=== PATIENT | male | born 1935 | race Caucasian/White ===

== ENCOUNTER 2017-12-23 11:51 | Observation (INO) | payer MEDICARE, OTHER ==
[~2017-12-23] VITALS: Ht 182.9 cm; Wt 93.4 kg
[2017-12-23] MEDS ORDERED: Zocor20 MG PO (12:21)
[2017-12-23] MEDS ORDERED: METO25ER (12:21)
[2017-12-23] MEDS ORDERED: XARELTO20 MG PO (12:21)
[2017-12-23] MEDS ORDERED: GABA100 PO (12:22)
[2017-12-23] MEDS ORDERED: ALPR.25 (12:22)
[2017-12-23] MEDS ORDERED: Janumet 50-1,01 EACH PO (12:22)
[2017-12-23] MEDS ORDERED: LIRA0.6P (12:22)
[2017-12-23] MEDS ORDERED: Humalog100 UNIT/1 (12:23)
[2017-12-23 12:31] LABS: BASOPHILS ABSOLUTE AUTO 0.05 K/mm3 (0.00-0.23); BASOPHILS PERCENT AUTO 1 % (0-2); EOSINOPHILS ABSOLUTE AUTO 0.19 K/mm3 (0.00-0.68); EOSINOPHILS PERCENT AUTO 3 % (0-6); Hematocrit 43.2 % (37.0-53.0); Hemoglobin 14.5 g/dL (13.5-17.5); IMMATURE GRAN ABSOLUTE AUTO 0.01 K/mm3 (0.00-0.10); IMMATURE GRAN PERCENT AUTO 0 % (0-1); LYMPHOCYTES ABSOLUTE AUTO 1.21 K/mm3 (0.84-5.20); LYMPHOCYTES PERCENT AUTO 17 % (21-46); MONOCYTES ABSOLUTE AUTO 0.53 K/mm3 (0.16-1.47); MONOCYTES PERCENT AUTO 8 % (4-13); Mean Corpuscular HGB 29.4 pg (26.0-34.0); Mean Corpuscular HGB Conc 33.6 g/dL (31.5-36.5); Mean Corpuscular Volume 87 fL (80-100); Mean Platelet Volume 8.8 fL (9.1-12.4); NEUTROPHILS PERCENT AUTO 72 % (41-73); Platelet Count 257 K/mm3 (150-400); RDW Standard Deviation 41.9 fL (35.1-46.3); Red Blood Cell Count 4.94 M/mm3 (4.30-5.90); White Blood Cell Count 7.09 K/mm3 (4.00-11.30)
[2017-12-23 12:47] LABS: Bun/Creatinine Ratio 14.3 (12.0-20.0); Calcium, Blood 9.4 mg/dL (8.5-10.1); Creatinine, Blood 1.26 mg/dL (0.60-1.20); Potassium, Blood 4.1 mmol/L (3.5-5.5); Troponin I 0.044 ng/mL (0.000-0.040)
[2017-12-23 16:06] LABS: Thyroid Stimulating Hormone 1.33 uIU/mL (0.360-4.800)
[2017-12-23 20:17] LABS: Creatine Kinase MB 3.6 ng/mL (0.0-3.6); Creatine Kinase MB Index 2.4 (0.0-4.0); Troponin I 0.044 ng/mL (0.000-0.040)
[2017-12-24 04:42] LABS: Hematocrit 40.4 % (37.0-53.0); Hemoglobin 13.5 g/dL (13.5-17.5); Mean Corpuscular HGB 29.3 pg (26.0-34.0); Mean Corpuscular HGB Conc 33.4 g/dL (31.5-36.5); Mean Corpuscular Volume 88 fL (80-100); Mean Platelet Volume 8.4 fL (9.1-12.4); Platelet Count 235 K/mm3 (150-400); White Blood Cell Count 7.84 K/mm3 (4.00-11.30)
[2017-12-24 04:54] LABS: Anion Gap 8 mmol/L (6-16); Blood Urea Nitrogen 17 mg/dL (8-24); Bun/Creatinine Ratio 14.3 (12.0-20.0); CHOL/HDL RATIO 2.3; CO2, Blood 28 mmol/L (21-32); Calcium, Blood 8.6 mg/dL (8.5-10.1); Chloride, Blood 107 mmol/L (98-108); Cholesterol 93 mg/dL (50-200); Creatinine, Blood 1.19 mg/dL (0.60-1.20); Glomerular Filtration Rate >60 (60-); Glucose, Blood 86 mg/dL (70-99); HDL Cholesterol 40 mg/dL (>39); Low Density Lipoprotein Chol 39 mg/dL (0-110); Potassium, Blood 3.9 mmol/L (3.5-5.5); Sodium, Blood 143 mmol/L (136-145); Triglycerides 69 mg/dL (30-160); Very Low Density Lipoprot Chol 13 mg/dL (6-32)
[2017-12-24 04:58] LABS: Creatine Kinase MB 3.2 ng/mL (0.0-3.6); Creatine Kinase MB Index 2.4 (0.0-4.0); Troponin I 0.038 ng/mL (0.000-0.040)
[2017-12-24] MEDS ORDERED: Aspirin EC81 MG PO (11:58)
[2017-12-24] MEDS ORDERED: Nitrostat0.4 MG SL (12:00)
== END 2017-12-24 12:23 | disposition home or self-care (01) ==
LOC: ER 11:51 → MEDS 11:52 → ER 13:26 → MEDS 13:26 → ENPENDDIS 12-24 11:05 → MEDS 12-24 12:23
PROVIDERS: Emergency Medicine; Internal Medicine
DX: I21.4 Non-ST elevation (NSTEMI) myocardial infarction (principal); R55 Syncope and collapse; I48.2 Chronic atrial fibrillation; E11.40 Type 2 diabetes mellitus with diabetic neuropathy, unspecified; E11.39 Type 2 diabetes mellitus with other diabetic ophthalmic complication; R79.89 Other specified abnormal findings of blood chemistry; H40.9 Unspecified glaucoma; E78.5 Hyperlipidemia, unspecified; Z79.899 Other long term (current) drug therapy; Z87.891 Personal history of nicotine dependence
CPT/HCPCS: 36415; 71045; 80048; 80061; 82550; 82553; 82947; 83036; 83735; 84443; 84484; 85025; 85027; 93005; 93010; 93306; 93880; 99285; G0378